=== PATIENT | female | born 1945 ===

== ENCOUNTER 2021-02-02 11:01 | Emergency (ER) | payer MEDICARE, OTHER ==
[2021-02-02] MEDS ORDERED: Sodium Chloride 0.9% 10 ML Syringe FLUSH PRN (11:13)
[2021-02-02] MEDS ORDERED: Ondansetron 4 MG/2 ML SDV IVPUSH ONE (11:22)
[2021-02-02 11:50] LABS: ANION GAP 13.1 mEq/L (7-13); CHLORIDE,CL 101 mmol/L (98-107); SODIUM,NA 137 mmol/L (136-145)
--- NOTE | 2021-02-02 11:50 | EDM.PDOC ---
ED HPI GENERAL MEDICAL PROBLEM - General Chief Complaint: Cardiovascular Problem Stated Complaint: [id number] NAUSEATED AND PRESSURE IN CHEST TO BACK Time Seen by Provider: 02/02/21 11:45 Source of Information: Reports: Patient History Limitations: Reports: No Limitations - History of Present Illness INITIAL COMMENTS - FREE TEXT/NARRATIVE: 75 y/o F c/o Cp that started at 9 am this morning. The pain was pressure in nature, and radiating to the back. THe pain comes and goes on its own and is rated a 4/10. She also reports nausea currently with no vomiting. Denies fever, cough, chills, drugs, etoh, db, munguia, vision changes, abd pn, extremity pn, diff voiding. Father and mother both of a heart attack father at 55. No hx of [place] for her. Onset: Today, Sudden Duration: Intermittent Location: Reports: Chest Quality: Reports: Pressure Severity: Moderate - Related Data Allergies Allergy/AdvReac Type Severity Reaction Status Date / Time No Known Allergies Allergy Verified 02/02/21 11:25 Home Meds: Home Meds amLODIPine [Norvasc] 10 mg PO BEDTIME 02/02/21 [History] lisinopriL [Lisinopril] 10 mg PO ACBREAKFAST 02/02/21 [History] Social & Family History - Tobacco Use Tobacco Use Status *Q: Never Tobacco User Second Hand Smoke Exposure: No - Caffeine Use Caffeine Use: Reports: Tea - Recreational Drug Use Recreational Drug Use: No ED ROS GENERAL - Review of Systems Review Of Systems: Comprehensive ROS is negative, except as noted in HPI. ED EXAM, GENERAL - Physical Exam Exam: See Below Exam Limited By: No Limitations General Appearance: Alert, No Apparent Distress Eye Exam: Bilateral Eye: PERRL Nose: Normal Inspection, Normal Mucosa, No Blood Throat/Mouth: Normal Inspection, Normal Lips, Normal Teeth, Normal Gums, Normal Oropharynx, Normal Voice, No Airway Compromise Head: Atraumatic, Normocephalic Neck: Normal Inspection, Supple, Non-Tender, Full Range of Motion, Carotid Bruit (bruit L) Respiratory/Chest: No Respiratory Distress, Lungs Clear, Normal Breath Sounds, No Accessory Muscle Use, Chest Non-Tender Cardiovascular: Normal Peripheral Pulses, Regular Rate, Rhythm, Other (murmur over the aortic valve grade 2) Peripheral Pulses: 2+: Carotid (L), Carotid (R), Radial (L), Radial (R), Dorsalis Pedis (L), Dorsalis Pedis (R) GI/Abdominal: Soft, Non-Tender (Female) Exam: Deferred Rectal (Female) Exam: Deferred Back Exam: Normal Inspection, Full Range of Motion, NT Extremities: Normal Inspection, Normal Range of Motion, Non-Tender, Normal Capillary Refill, No Pedal Edema Neurological: Alert, Oriented, CN II-XII Intact, Normal Cognition, Normal Gait, Normal Reflexes, No Motor/Sensory Deficits Psychiatric: Normal Affect, Normal Mood Skin Exam: Warm, Dry, Intact, Normal Color, No Rash #1 Interpretation EKG Date: 02/02/21 Time: 11:09 Rhythm: NSR P-Wave: Present QRS: Normal ST-T: Normal QT: Normal Course - Vital Signs Last Recorded V/S: Last Vital Signs Temp 98.3 F 02/02/21 11:10 Pulse 88 02/02/21 11:10 Resp 14 02/02/21 11:10 BP 165/76 H 02/02/21 11:10 Pulse Ox 98 02/02/21 11:10 - Orders/Labs/Meds Orders: Active Orders 24 hr Category Date Time Status Peripheral IV Care [RC] . DIRECTED Care 02/02/21 11:13 Active CULTURE URINE [RM] Stat Lab 02/02/21 12:40 Received Sodium Chloride 0.9% [Saline Flush] Med 02/02/21 11:13 Active 10 ml FLUSH ASDIRECTED PRN Peripheral IV Insertion Adult [OM.PC] Routine Oth 02/02/21 11:13 Ordered Medication Orders Sodium Chloride (Sodium Chloride 0.9% 10 Ml Syringe) 10 ml FLUSH ASDIRECTED PRN PRN Reason: Keep Vein Open Last Admin: 02/02/21 11:34 Dose: 10 ml Documented by: TASH Labs: Laboratory Tests 02/02/21 02/02/21 02/02/21 Range/Units 11:15 11:15 12:40 WBC 7.0 (5.0-10.0) 10^3/uL RBC 4.71 (4.2-5.4) 10^6/uL Hgb 14.0 (12.0-16.0) g/dL Hct 42.4 (37.0-47.0) % MCV 90.0 (80-100) fL MCH 29.7 (27.0-34.0) pg MCHC 33.0 (33.0-35.0) g/dL Plt Count 270 (150-450) 10^3/uL Neut % (Auto) 64.1 (42.2-75.2) % Lymph % (Auto) 26.0 (20.5-50.1) % [place] % (Auto) 8.9 H (2-8) % Eos % (Auto) 0.7 L (1.0-3.0) % Baso % (Auto) 0.3 (0.0-1.0) % Sodium 137 (136-145) mmol/L Potassium 4.1 (3.5-5.1) mmol/L Chloride 101 (98-107) mmol/L Carbon Dioxide 27 (21-32) mmol/L Anion Gap 13.1 H (7-13) mEq/L BUN 13 (7-18) mg/dL Creatinine 0.74 (0.55-1.02) mg/dL Est Cr Clr Drug Dosing 52.32 mL/min Estimated GFR (MDRD) > 60 BUN/Creatinine Ratio 17.6 (No establ ref range) Glucose 127 H (70-99) mg/dL Calcium 8.8 (8.5-10.1) mg/dL Magnesium 2.1 (1.8-2.4) mg/dL Total Bilirubin 0.5 (0.2-1.0) mg/dL AST 24 (15-37) U/L ALT 30 (14-59) U/L Alkaline Phosphatase 100 (46-116) U/L Troponin I High Sens 5 (<=51) pg/mL C-Reactive Protein 1.2 H (0.0-0.9) mg/dL B-Natriuretic Peptide 33 (0-100) pg/ml Total Protein 8.0 (6.4-8.2) g/dL Albumin 3.7 (3.4-5.0) g/dL Globulin 4.3 Albumin/Globulin Ratio 0.9 Amylase 26 (25-115) U/L Lipase 86 (73-393) U/L TSH, Ultra Sensitive 4.53 H (0.36-3.74) uIU/mL Urine Color Yellow (YELLOW) Urine Appearance Clear (CLEAR) Urine pH 6.0 (5.0-9.0) Ur Specific [place] 1.010 (1.005-1.030) Urine Protein Negative (NEGATIVE) Urine Glucose (UA) Negative (NEGATIVE) Urine Ketones Negative (NEGATIVE) Urine Occult Blood Negative (NEGATIVE) Urine Nitrite Negative (NEGATIVE) Urine Bilirubin Negative (NEGATIVE) Urine Urobilinogen 0.2 (0.2-1.0) mg/dL Ur Leukocyte Esterase Small H (NEGATIVE) Urine RBC Not seen (0-5) /HPF Urine WBC 0-5 (0-5/HPF) /HPF Ur Epithelial Cells Few (NOT SEEN) /HPF Urine Bacteria Few (0-FEW/HPF) /HPF SARS CoV-2 RNA Rapid ADRIANNA (NEGATIVE) 02/02/21 Range/Units 13:18 WBC (5.0-10.0) 10^3/uL RBC (4.2-5.4) 10^6/uL Hgb (12.0-16.0) g/dL Hct (37.0-47.0) % MCV (80-100) fL MCH (27.0-34.0) pg MCHC (33.0-35.0) g/dL Plt Count (150-450) 10^3/uL Neut % (Auto) (42.2-75.2) % Lymph % (Auto) (20.5-50.1) % [place] % (Auto) (2-8) % Eos % (Auto) (1.0-3.0) % Baso % (Auto) (0.0-1.0) % Sodium (136-145) mmol/L Potassium (3.5-5.1) mmol/L Chloride (98-107) mmol/L Carbon Dioxide (21-32) mmol/L Anion Gap (7-13) mEq/L BUN (7-18) mg/dL Creatinine (0.55-1.02) mg/dL Est Cr Clr Drug Dosing mL/min Estimated GFR (MDRD) BUN/Creatinine Ratio (No establ ref range) Glucose (70-99) mg/dL Calcium (8.5-10.1) mg/dL Magnesium (1.8-2.4) mg/dL Total Bilirubin (0.2-1.0) mg/dL AST (15-37) U/L ALT (14-59) U/L Alkaline Phosphatase (46-116) U/L Troponin I High Sens (<=51) pg/mL C-Reactive Protein (0.0-0.9) mg/dL B-Natriuretic Peptide (0-100) pg/ml Total Protein (6.4-8.2) g/dL Albumin (3.4-5.0) g/dL Globulin Albumin/Globulin Ratio Amylase (25-115) U/L Lipase (73-393) U/L TSH, Ultra Sensitive (0.36-3.74) uIU/mL Urine Color (YELLOW) Urine Appearance (CLEAR) Urine pH (5.0-9.0) Ur Specific [place] (1.005-1.030) Urine Protein (NEGATIVE) Urine Glucose (UA) (NEGATIVE) Urine Ketones (NEGATIVE) Urine Occult Blood (NEGATIVE) Urine Nitrite (NEGATIVE) Urine Bilirubin (NEGATIVE) Urine Urobilinogen (0.2-1.0) mg/dL Ur Leukocyte Esterase (NEGATIVE) Urine RBC (0-5) /HPF Urine WBC (0-5/HPF) /HPF Ur Epithelial Cells (NOT SEEN) /HPF Urine Bacteria (0-FEW/HPF) /HPF SARS CoV-2 RNA Rapid ADRIANNA Negative (NEGATIVE) Meds: Medications Generic Name Dose Route Start Last Admin Trade Name Freq PRN Reason Stop Dose Admin Sodium Chloride 10 ml 02/02/21 11:13 02/02/21 11:34 Sodium Chloride 0.9% 10 Ml Syringe FLUSH 10 ml ASDIRECTED PRN Administration Keep Vein Open Discontinued Medications Generic Name Dose Route Start Last Admin Trade Name Freq PRN Reason Stop Dose Admin Ondansetron HCl 4 mg 02/02/21 11:22 02/02/21 11:34 Ondansetron 4 Mg/2 Ml Sdv IVPUSH 02/02/21 11:23 4 mg ONETIME ONE Administration - Re-Assessments/Exams Free Text/Narrative Re-Assessment/Exam: 02/02/21 14:01 The pt has a negative workup other than her hypothyroidism. I will advise her to follow up with her PCP to teat her hypothyroidism. Departure - Departure Time of Disposition: 14:03 Disposition: Home, Self-Care 01 Condition: Good Clinical Impression: Hypothyroid Qualifiers: Hypothyroidism type: unspecified Qualified Code(s): E03.9 - Hypothyroidism, unspecified Instructions: Hypothyroidism Forms: ED Department Discharge Additional Instructions: Follow up with your primary care physician about your hypothyroidism. If any new symptoms or concerns develop contact your primary care facility or return to the ER. Sepsis Event Note (ED) - Evaluation Sepsis Screening Result: No Definite Risk - Focused Exam Vital Signs: Vital Signs Temp Pulse Resp BP Pulse Ox 02/02/21 11:10 98.3 F 88 14 165/76 H 98 - My Orders Last 24 Hours: My Active Orders 02/02/21 11:13 Peripheral IV Care [RC] . DIRECTED Sodium Chloride 0.9% [Saline Flush] 10 ml FLUSH ASDIRECTED PRN Peripheral IV Insertion Adult [OM.PC] Routine 02/02/21 12:40 CULTURE URINE [RM] Stat - Assessment/Plan Last 24 Hours: My Active Orders 02/02/21 11:13 Peripheral IV Care [RC] . DIRECTED Sodium Chloride 0.9% [Saline Flush] 10 ml FLUSH ASDIRECTED PRN Peripheral IV Insertion Adult [OM.PC] Routine 02/02/21 12:40 CULTURE URINE [RM] Stat
--- NOTE | 2021-02-02 11:57 | CR ---
PROCEDURE INFORMATION: Exam: XR Chest Exam date and time: 02/02/2021 11:19 AM Age: 75 years old Clinical indication: Pain; Other: Chest; Additional info: Cp TECHNIQUE: Imaging protocol: XR of the chest. Views: 2 views. COMPARISON: No relevant prior studies available. FINDINGS: Lungs: Unremarkable. No consolidation. Pleural spaces: Unremarkable. No pleural effusion. No pneumothorax. Heart/Mediastinum: Unremarkable. No cardiomegaly. Diaphragm: Elevated right hemidiaphragm. Bones/joints: Unremarkable. IMPRESSION: No acute findings.
== END 2021-02-02 14:34 | disposition home or self-care (01) ==
LOC: DL.ED 11:01
DX: E03.9 Hypothyroidism, unspecified (principal); Z20.822 Contact with and (suspected) exposure to COVID-19
CPT/HCPCS: 36415; 71046; 80053; 81001; 82150; 83690; 83735; 83880; 84443; 84484; 85025; 86140; 87086; 93005; 96374; 99285; J2405; U0002